=== PATIENT | female | born 1990 | race Caucasian/White ===

== ENCOUNTER 2016-09-15 08:35 | Emergency (ER) | payer OTHER ==
[~2016-09-15] VITALS: Ht 157.5 cm; Wt 58.1 kg
[2016-09-15] MEDS ORDERED: ONDANSETRON 4 MG ORAL DISINTEGRATING TAB (S0181) PO ONE (09:45)
[2016-09-15] MEDS ORDERED: KETOROLAC 30 MG/ML VIAL (J1885) IM ONE (09:45)
[2016-09-15] MEDS ORDERED: NITROFURANTOIN (MACROBID) 100 MG CAP PO ONE (10:45)
[2016-09-15] MEDS ORDERED: cefTRIAXone SOD 250 MG VIAL (J0696) IM ONE (10:45)
[2016-09-15] MEDS ORDERED: DOXYCYCLINE HYCLATE 100 MG TAB PO ONE (10:45)
[2016-09-15] MEDS ORDERED: DOXY100C37 PO (11:45)
[2016-09-15] MEDS ORDERED: MACR100C3 PO (11:45)
[2016-09-15] MEDS ORDERED: ZOFR4TAB3 PO (11:45)
[2016-09-15 11:58] VITALS: BP 130/69
== END 2016-09-15 12:01 | disposition home or self-care (01) ==
LOC: M ED 10:27
DX: N39.0 Urinary tract infection, site not specified (principal); N73.9 Female pelvic inflammatory disease, unspecified; Z87.440 Personal history of urinary (tract) infections
CPT/HCPCS: 81001; 81025; 87086; 87210; 87491; 87591; 96372; 99284; J0696; J1885